=== PATIENT | male | born 1945 | race Caucasian/White ===

== ENCOUNTER 2017-03-26 07:38 | Inpatient (IN) | payer MEDICARE, OTHER ==
[2017-03-26] VITALS (19 sets, daily range): BP systolic 17–150; BP diastolic 42–72; PULSE 51–83; RESP 10–22; Ht 170.2 cm; Wt 74.0 kg
[~2017-03-26] VITALS: Ht 170.2 cm; Wt 74.0 kg
--- NOTE | 2017-03-26 06:47 | HPN ---
Date/Time of Note Date/Time of Note DATE: 03/26/17 TIME: 06:47 Interval H&P Admission Note Pt. seen H&P reviewed: No system changes KIERAN ESCALERA MD Mar 26, 2017 06:47
[~2017-03-26 07:38] MED LIST: BUPIVACAINE 0.5% (SDV) 30 ML, morphine SULFATE (PF) 8 MG, EPINEPHrine 0.3 MG, KETOROLAC... IRR SCH; CEFAZOLIN 1 GM INJ ONE; CEFAZOLIN 2 GM/50 ML (PMX) 50 ML IVPB ONE; DEXAMETHASONE 1 MG TAB PO ONE; EPHEDrine SULFATE 50 MG/5 ML SYG ONE; GABAPENTIN 300 MG CAP PO ONE; TRANEXAMIC ACID 1,000 MG in SOD CHLORIDE 0.9% 100 ML IVPB ONE; traMADol 50 MG TAB PO ONE
[2017-03-26] MEDS ORDERED: MIDAZOLAM 1 MG/ML 2 ML INJ ONE (07:56)
[2017-03-26] MEDS ORDERED: ROPIVACAINE 0.5 % 30 ML VIAL ONE (07:56)
[2017-03-26] MEDS ORDERED: METOCLOPRAMIDE 10 MG INJ ONE (07:56)
[2017-03-26] MEDS ORDERED: POLYMYXIN/BACITRACIN 1L IRRIG ONE (08:49)
[2017-03-26] MEDS ORDERED: BUPIVACAINE 0.5% (SDV) 30 ML INJ ONE (08:50)
[2017-03-26] MEDS ORDERED: THROMBIN 5000 UNIT VIAL ONE (08:50)
[2017-03-26] MEDS ORDERED: CA CHLORIDE 10% 10 ML SYRINGE ONE (08:50)
[2017-03-26] MEDS ORDERED: BUPIVACAINE 0.5%/EPI (SDV) 10 ML INJ ONE ×2 (08:51→08:52)
[2017-03-26] MEDS ORDERED: LORA-441 PO (09:03)
[2017-03-26] MEDS ORDERED: ASPI-664 PO (09:03)
[2017-03-26] MEDS ORDERED: ATOR10TA65 PO (09:03)
[2017-03-26] MEDS ORDERED: GABA100C14 PO (09:04)
[2017-03-26] MEDS ORDERED: DICL100G37 TOP (09:05)
[2017-03-26] MEDS ORDERED: PIRO20CA2 PO (09:05)
[2017-03-26] MEDS ORDERED: FENTAnyl 50 MCG/ML VIAL ONE (09:09)
[2017-03-26] MEDS ORDERED: hydrALAzine 20 MG INJ ONE (09:27)
[2017-03-26] MEDS ORDERED: ONDANSETRON 4 MG INJ IV PRN ×2 (10:00→11:00)
[2017-03-26] MEDS ORDERED: EPHEDrine SULFATE 50 MG/5 ML SYG IV PRN (10:00)
[2017-03-26] MEDS ORDERED: METOCLOPRAMIDE 10 MG INJ IV PRN (10:00)
[2017-03-26] MEDS ORDERED: MEPERIDINE 25 MG INJ IV PRN (10:00)
[2017-03-26] MEDS ORDERED: DIPHENHYDRAMINE 50 MG INJ IV PRN ×2 (10:00→11:00)
[2017-03-26] MEDS ORDERED: LABETALOL HCL 20MG INJ IV PRN (10:00)
[2017-03-26] MEDS ORDERED: hydrALAzine 20 MG INJ IV PRN (10:00)
[2017-03-26] MEDS ORDERED: HYDROmorphONE (0.2 MG/ML) 10ML SYG IV PRN ×3 (10:00)
[2017-03-26] MEDS ORDERED: morphine 2 MG INJ IV PRN (11:00)
[2017-03-26] MEDS ORDERED: ACETAMINOPHEN 500 MG TAB PO PRN (11:00)
[2017-03-26] MEDS ORDERED: MAGNESIUM HYDROXIDE 30ML CUP PO PRN (11:00)
[2017-03-26] MEDS ORDERED: KETOROLAC 15 MG INJ IV PRN (11:00)
[2017-03-26] MEDS ORDERED: ZOLPIDEM 5 MG TAB PO PRN (11:00)
[2017-03-26] MEDS ORDERED: OXYCODONE/ACETAMINOPHEN (5/325) TAB PO PRN (11:00)
[2017-03-26] MEDS ORDERED: morphine 4 MG/ML VIAL IV PRN (11:00)
--- NOTE | 2017-03-26 11:03 | OPR ---
Date/Time of Note Date/Time of Note DATE: 03/26/17 TIME: 10:59 Operative Report Procedure Date: Mar 26, 2017 Preoperative Diagnosis Left shoulder primary osteoarthritis Postoperative Diagnosis Left shoulder primary osteoarthritis Operation Performed Left total shoulder replacement Surgeon: KIERAN ESCALERA MD Anesthesia: general Estimated Blood Loss: 50 - 100 ml's Complications: None Pt Condition Post Procedure: stable Disposition: PACU Operative\Procedure Findings Severe and diffuse arthritis with large peripheral osteophytes. Procedure Description Following the administration of general endotracheal anesthesia supplemented with a scalene block, the patient was placed in the beachchair position. A sterile prep and drape was then undertaken in the usual fashion. A standard deltopectoral incision was then undertaking exposing the conjoined tendon and retracting it medially. The bicipital groove was entered and the biceps was tenodesed to the bicipital groove severe changes in the biceps tendon were noted. The subscapularis was detached to the superior rotator cuff appeared normal severe arthritic changes were noted on both sides of the joint with large peripheral osteophytes. Humeral osteophyte resection was then undertaken followed by humeral head excision in the typical position of version and inclination. A humeral head was then retracted and the glenoid exposed. Very large peripheral osteophytes and loose bodies were removed as well as a capsulectomy was completed. The central canal was then entered and prepared for a Depuy glenoid component. They 44 mm component was then inserted with cement with solid fixation. Attention was then directed to the humerus. The humeral canal was reamed up to the 10 mm size Depuy component was then inserted with a 44 x 15 humeral head good position of the component was obtained. The patient's arm was taken through full range of motion with no instability. The joint was irrigated the subscapularis was reapproximated using #2 sutures that were passed circumferentially around the humeral component a watertight closure was obtained of the subscapularis. The joint was irrigated again followed by closure in layers. The final dressing, a perennial dressing, was waterproof. A sling was then applied followed by extubation of the patient transported to recovery room in a stable condition. Estimated blood loss was procedure was approximately 75 cc. KIERAN ESCALERA MD Mar 26, 2017 11:03
[2017-03-26] MEDS: DEXAMETHASONE 2 MG TAB PO SCH ×3 (11:37→23:51)
[2017-03-26] MEDS ORDERED: TRANEXAMIC ACID 1,000 MG in SOD CHLORIDE 0.9% 100 ML IV SCH (12:00)
--- NOTE | 2017-03-26 12:34 | RADRPT ---
PROCEDURE: XR Left Shoulder. CLINICAL INDICATION: Postop evaluation TECHNIQUE: 2 views of the left shoulder are available for review. COMPARISON: None available FINDINGS: There is evidence of a recent left shoulder total arthroplasty. There is some posterior rotation of the humeral head component noted, possibly positional. There is overlying soft tissue swelling and gas. There is a left-sided cardiac pacing device. Ther e is left basilar atelectasis. There is no acute fracture. IMPRESSION: 1. Recent left shoulder total arthroplasty as above. RPTAT: [facility] .Gordon Roa MD, MD Date Time Electronically viewed and signed by .oGrdon Roa MD, on 03/26/2017 12:34 .K/
[2017-03-26] MEDS: CEFAZOLIN 1 GM/50 ML (PMX) 50 ML IVPB SCH ×2 (13:14→20:50)
--- NOTE | 2017-03-26 13:47 | PDOCDIS ---
Discharge Instructions DIAGNOSIS Discharge Diagnosis Primary arthritis of the left shoulder CONDITION Patient Condition: Good HOME CARE INSTRUCTIONS: Diet Instructions: Regular ACTIVITY: Activity Restrictions: Slowly Increase Activity Keep Limb Elevated Bathing Restrictions: Shower FOLLOW UP/APPOINTMENTS Follow-up Plan 2 weeks SCHOOL/WORK RELEASE May return to School/Work with: With Restrictions School/Work Release Comment: 5 pound tabletop usage for 6 weeks KIERAN ESCALERA MD Mar 26, 2017 13:47
[2017-03-26] MEDS: SENNA/DOCUSATE NA (8.6MG/50MG) TAB PO SCH (20:50)
[2017-03-26] MEDS ORDERED: GABAPENTIN 300 MG CAP PO SCH (21:00)
[2017-03-26] MEDS ORDERED: ATORVASTATIN 10 MG TAB PO SCH (21:00)
[2017-03-27] MEDS: OXYCODONE/ACETAMINOPHEN (5/325) TAB PO PRN ×2 (04:33→08:47)
[2017-03-27] MEDS: CEFAZOLIN 1 GM/50 ML (PMX) 50 ML IVPB SCH (05:15)
[2017-03-27] MEDS: DEXAMETHASONE 2 MG TAB PO SCH (05:15)
--- NOTE | 2017-03-27 06:35 | PN ---
Date/Time of Note Date/Time of Note DATE: 03/27/17 TIME: 06:34 24 hour Interval Summary Patient is awake and alert with no pain. Physical Exam Physical examination of the left upper extremity reveals that his wound is clean and dry. He is neurologically intact. He has no signs of DVT. Vital Signs Date Time Temp Pulse Resp B/P Pulse Ox O2 Delivery O2 Flow Rate FiO2 03/26/17 22:14 97.8 76 20 103/56 97 03/26/17 13:55 Nasal Cannula 2.0 Intake and Output 03/26/17 03/26/17 03/27/17 15:00 23:00 07:00 Intake Total 1450 ml 350 ml 550 ml Output Total 150 ml 600 ml Balance 1450 ml 200 ml -50 ml VTE Prophylaxis VTE Prophylaxis Intervention: anti-embolic stocking Lines/Catheters IV Catheter Type: Saline Lock [place] in Place: No Assessment/Plan Chief Complaint/Hosp Course Assessment: He will begin physical therapy this morning then be discharged following clearance by physical therapy. He will follow-up in the office in 2 weeks. Problems: Medications Medications Home Meds Reported Medications Diclofenac Sodium* (Voltaren* Gel) 1% -100 Gm Gel, 2 GM TOP TID Y for PRN, #1 TUB 03/26/17 Piroxicam* (Piroxicam*) 20 Mg Capsule, 20 MG PO DAILY, CAP 03/26/17 Gabapentin* (Gabapentin*) 100 Mg Capsule, 200 MG PO QHS, #180 CAP 03/26/17 Atorvastatin Calcium (Atorvastatin Calcium) 10 Mg Tablet, 10 MG PO QAM, #30 TAB 03/26/17 Lorazepam* (Ativan*) 0.5 Mg Tablet, 0.5 MG PO HS Y for SLEEP, #30 TAB 03/26/17 Aspirin (Low Dose Aspirin) 81 Mg Tablet., 81 MG PO DAILY, #30 TAB 03/26/17 KIERAN ESCALERA MD Mar 27, 2017 06:35
--- NOTE | 2017-03-27 06:36 | DS ---
Date/Time of Note Date/Time of Note DATE: 03/27/17 TIME: 06:35 Discharge Summary Admission/Discharge Info Admit Date/Time Mar 26, 2017 at 07:38 Discharge Date/Time March 27, 2017 following physical therapy Discharge Diagnosis Primary arthritis of the left shoulder Patient Condition: Good Procedures Left total shoulder replacement Hx of Present Illness Pain and stiffness which was severe over the last few years. Hospital Course The patient was admitted and underwent a total shoulder replacement with no complications. He was discharged in the morning following overnight observation. He will follow-up in 2 weeks in the office. Home Meds Reported Medications Diclofenac Sodium* (Voltaren* Gel) 1% -100 Gm Gel, 2 GM TOP TID Y for PRN, #1 TUB 03/26/17 Piroxicam* (Piroxicam*) 20 Mg Capsule, 20 MG PO DAILY, CAP 03/26/17 Gabapentin* (Gabapentin*) 100 Mg Capsule, 200 MG PO QHS, #180 CAP 03/26/17 Atorvastatin Calcium (Atorvastatin Calcium) 10 Mg Tablet, 10 MG PO QAM, #30 TAB 03/26/17 Lorazepam* (Ativan*) 0.5 Mg Tablet, 0.5 MG PO HS Y for SLEEP, #30 TAB 03/26/17 Aspirin (Low Dose Aspirin) 81 Mg Tablet., 81 MG PO DAILY, #30 TAB 03/26/17 Primary Care Provider Not On Staff Doctor KIERAN ESCALERA MD Mar 27, 2017 06:36
[2017-03-27 08:00] VITALS: BP 99/51; RESP 18
[2017-03-27] MEDS: SENNA/DOCUSATE NA (8.6MG/50MG) TAB PO SCH (08:47)
[2017-03-27] MEDS ORDERED: ASPIRIN 81 MG TAB PO SCH (09:00)
== END 2017-03-27 11:05 | disposition home or self-care (01) | DRG 483 ==
LOC: REC 07:38 → MS1 12:02
PROVIDERS: ADMIT Orthopaedic Surgery; ATTEND Orthopaedic Surgery
PROC: 0RRK0JZ Replacement of Left Shoulder Joint with Synthetic Substitute, Open Approach (ICD-10-PCS; principal; 2017-03-26 09:30)
DX: M19.012 Primary osteoarthritis, left shoulder (principal); E78.5 Hyperlipidemia, unspecified; Z95.0 Presence of cardiac pacemaker
CPT/HCPCS: 73030; 86999; 88304; 88311; 97163; C1776; J0171; J0360; J0690; J0735; J1885; J2250; J2274; J2765; J2795; J3010; J3370